=== PATIENT | female | born 1940 | race Caucasian/White ===

== ENCOUNTER 2017-06-21 19:15 | Inpatient (IN) | payer MEDICARE, OTHER ==
[2017-06-21] MEDS: NS 1,000 ML IV ×2 (20:30→23:30)
[2017-06-21 20:43] LABS: BASO % 0.2 % (0.0-1.0); EOS % 0.1 % (0.0-3.0); HEMATOCRIT 42.7 % (36.0-47.0); IMMATURE GRANULOCYTE % 0.4 % (0-3.0); LYMPH # 1.4 10^3/uL (1.5-4.5); LYMPH % 8.5 % (24.0-44.0); MEAN CORPUSCULAR HEMOGLOBIN 28.7 pg (27.0-33.0); MEAN CORPUSCULAR HGB CONC 32.8 g/dl (32.0-36.5); MEAN CORPUSCULAR VOLUME 87.7 fl (80.0-96.0); MONO # 0.8 10^3/uL (0.0-0.8); MONO % 4.7 % (0.0-5.0); NEUTROPHILS # 13.8 10^3/uL (1.8-7.7); NEUTROPHILS % 86.1 % (36.0-66.0); PLATELET COUNT, AUTOMATED 307 10^3/uL (150-450); RED BLOOD COUNT 4.87 10^6/uL (4.00-5.40); RED CELL DISTRIBUTION WIDTH 12.8 % (11.5-14.5)
[2017-06-21 20:52] LABS: ACETAMINOPHEN LEVEL < 2.0 UG/ML (10.0-30.0); ALBUMIN 3.5 GM/DL (3.2-5.2); ALBUMIN/GLOBULIN RATIO 0.95 (1.00-1.93); ALKALINE PHOSPHATASE 117 U/L (45-117); ALT/SGPT 47 U/L (12-78); ANION GAP 17 MEQ/L (8-16); AST/SGOT 39 U/L (7-37); BILIRUBIN,DIRECT 0.3 MG/DL (0.0-0.2); BLOOD UREA NITROGEN 34 MG/DL (7-18); CARBON DIOXIDE LEVEL 21 MEQ/L (21-32); CHLORIDE LEVEL 104 MEQ/L (98-107); CPK CREATINE PHOSPHOKINASE 612 U/L (26-192); CREATININE FOR GFR 0.74 MG/DL (0.55-1.30); ETHYL ALCOHOL (ETHANOL) < 0.003 % (0.000-0.010); GLOMERULAR FILTRATION RATE > 60.0 (>39); GLUCOSE, FASTING 202 MG/DL (70-100); POTASSIUM SERUM 3.3 MEQ/L (3.5-5.1); SALICYLATE LEVEL 2.2 MG/DL (5.0-30.0); SODIUM LEVEL 142 MEQ/L (136-145); TOTAL PROTEIN 7.2 GM/DL (6.4-8.2); TROPONIN I < 0.02 NG/ML (< 0.10)
[2017-06-21 20:57] LABS: LACTIC ACID SEPSIS PROTOCOL 3.2 MMOL/L (0.4-2.0)
[2017-06-21 21:01] LABS: AMMONIA 22 uMOL/L (<32)
[2017-06-21 21:10] LABS: BILIRUBIN,TOTAL 0.9 MG/DL (0.2-1.0); CK-MB VALUE MASS 14.4 NG/ML (0.0-3.6); MB/CK RELATIVE INDEX 2.35 (< OR =4); THYROID STIMULATING HORMONE 0.509 uIU/ML (0.358-3.740)
[2017-06-21 21:13] LABS: OSMOLALITY SERUM 309 MOSM/KG (280-301)
[2017-06-21 21:20] LABS: VENOUS BASE EXCESS -3.4 (-2.0-2.0); VENOUS HCO3 19.3 MEQ/L (23.0-27.0); VENOUS O2 SATURATION 99.5 % (60.0-80.0); VENOUS PARTIAL PRESSURE CO2 28.8 mmHg (38.0-50.0); VENOUS PARTIAL PRESSURE O2 212.5 mmHg (30.0-50.0); VENOUS PH 7.445 UNITS (7.330-7.430); VENOUS STANDARD HCO3 21.7 MEQ/L; VENOUS TOTAL CO2 20.2 MEQ/L (24.0-28.0)
[2017-06-21 21:58] LABS: KETONE, URINE AUTO RFX 2+ mg/dL (NEGATIVE); LEUKOCYTE ESTERASE UR AUTO RFX NEGATIVE (NEGATIVE); MUCUS, URINE RFX SMALL (NEGATIVE); NITRITE, URINE AUTO RFX NEGATIVE (NEGATIVE); RBC, URINE AUTO RFX 1 /HPF (0-3); SPECIFIC GRAVITY UR AUTO RFX 1.026 (1.002-1.035); SQUAM EPITHELIAL CELL UR AURFX 4 /HPF (0-6); WBC, URINE AUTO RFX 2 /HPF (0-3)
[2017-06-21 22:07] LABS: AMPHETAMINES LEVEL URINE NEGATIVE (NEGATIVE); BARBITURATES URINE NEGATIVE (NEGATIVE); BENZODIAZEPINES URINE NEGATIVE (NEGATIVE); CANNABINOIDS URINE NEGATIVE (NEGATIVE); COCAINE METABOLITE URINE NEGATIVE (NEGATIVE); METHADONE URINE NEGATIVE (NEGATIVE); OPIATES URINE NEGATIVE (NEGATIVE); PHENCYCLIDINE URINE NEGATIVE (NEGATIVE)
[2017-06-21 22:42] LABS: ESTIMATED AVERAGE GLUCOSE 214 MG/DL (60-110); HEMOGLOBIN A1c 9.1 %
[2017-06-22] MEDS: NS 1,000 ML IV ×4 (00:30→22:51)
[2017-06-22] MEDS ORDERED: BISACODYL 5 MG TAB PO (03:45)
[2017-06-22] MEDS ORDERED: ONDANSETRON 4 MG TAB (S0181) PO (03:45)
[2017-06-22] MEDS: POTASSIUM CHLORIDE 10 MEQ SR TABLET PO (06:12)
[2017-06-22] MEDS: MAGNESIUM OXIDE 400 MG TAB (MAG-OX) PO (06:13)
[2017-06-22 06:52] LABS: ESTIMATED AVERAGE GLUCOSE 237 MG/DL (60-110); HEMOGLOBIN A1c 9.9 %
[2017-06-22 06:56] LABS: THYROID STIMULATING HORMONE 0.437 uIU/ML (0.358-3.740)
[2017-06-22 09:25] LABS: MEAN CORPUSCULAR HEMOGLOBIN 29.1 pg (27.0-33.0); MEAN CORPUSCULAR HGB CONC 34.1 g/dl (32.0-36.5); MEAN CORPUSCULAR VOLUME 85.2 fl (80.0-96.0); PLATELET COUNT, AUTOMATED 232 10^3/uL (150-450); RED BLOOD COUNT 3.99 10^6/uL (4.00-5.40); RED CELL DISTRIBUTION WIDTH 12.9 % (11.5-14.5); WHITE BLOOD COUNT 10.3 10^3/uL (4.0-10.0)
[2017-06-22 09:29] LABS: HEMOGLOBIN 11.6 g/dl (12.0-16.0)
[2017-06-22] MEDS: ATENOLOL 25 MG TAB PO (09:36)
[2017-06-22] MEDS: ENOXAPARIN 40 MG/0.4 ML SYRINGE (J1650) SC (09:36)
[2017-06-22 09:41] LABS: ANION GAP 13 MEQ/L (8-16); BLOOD UREA NITROGEN 34 MG/DL (7-18); CALCIUM LEVEL 7.9 MG/DL (8.8-10.2); CARBON DIOXIDE LEVEL 22 MEQ/L (21-32); CHLORIDE LEVEL 111 MEQ/L (98-107); CPK CREATINE PHOSPHOKINASE 511 U/L (26-192); CREATININE FOR GFR 0.54 MG/DL (0.55-1.30); GLOMERULAR FILTRATION RATE > 60.0 (>39); GLUCOSE, FASTING 199 MG/DL (70-100); POTASSIUM SERUM 3.2 MEQ/L (3.5-5.1); SODIUM LEVEL 146 MEQ/L (136-145)
[2017-06-22] MEDS: OLANZapine 5 MG TAB PO (17:15)
[2017-06-22 17:41] LABS: AMYLASE 185 U/L (25-115); LIPASE 201 U/L (73-393)
[2017-06-22] MEDS: ACETAMINOPHEN TAB 650MG DOSE (2X325MG) PO (22:39)
[2017-06-23] MEDS: NYSTATIN 100,000 UNITS/GM TOPICAL PWD 15 GM TOP ×3 (02:50→21:34)
[2017-06-23 04:50] LABS: APPEARANCE, URINE CLEAR (CLEAR); BACTERIA, URINE AUTO 1+ (NEGATIVE); BILIRUBIN, URINE AUTO NEGATIVE (NEGATIVE); BLOOD, URINE BLOOD NEGATIVE (NEGATIVE); COLOR, URINE YELLOW (YELLOW); GLUCOSE, URINE (UA) AUTO 1+ mg/dL (NEGATIVE); KETONE, URINE AUTO NEGATIVE (NEGATIVE); LEUKOCYTE ESTERASE, URINE AUTO TRACE (NEGATIVE); MUCUS, URINE SMALL (NEGATIVE); NITRITE, URINE AUTO NEGATIVE (NEGATIVE); PROTEIN, URINE AUTO NEGATIVE (NEGATIVE); RBC, URINE AUTO 4 /HPF (0-3); SPECIFIC GRAVITY URINE AUTO 1.025 (1.002-1.035); SQUAMOUS EPITHELIAL CELL UR AU 2 /HPF (0-6); WBC, URINE AUTO 2 /HPF (0-3)
[2017-06-23 05:42] LABS: HEMATOCRIT 35.3 % (36.0-47.0); HEMOGLOBIN 11.6 g/dl (12.0-16.0); MEAN CORPUSCULAR HEMOGLOBIN 28.6 pg (27.0-33.0); MEAN CORPUSCULAR HGB CONC 32.9 g/dl (32.0-36.5); MEAN CORPUSCULAR VOLUME 86.9 fl (80.0-96.0); PLATELET COUNT, AUTOMATED 209 10^3/uL (150-450); RED BLOOD COUNT 4.06 10^6/uL (4.00-5.40); WHITE BLOOD COUNT 9.1 10^3/uL (4.0-10.0)
[2017-06-23 06:12] LABS: BLOOD UREA NITROGEN 24 MG/DL (7-18); CREATININE FOR GFR 0.48 MG/DL (0.55-1.30); GLOMERULAR FILTRATION RATE > 60.0 (>39); GLUCOSE, FASTING 169 MG/DL (70-100); SODIUM LEVEL 145 MEQ/L (136-145)
[2017-06-23 06:13] LABS: ANION GAP 9 MEQ/L (8-16); CALCIUM LEVEL 8.4 MG/DL (8.8-10.2); CARBON DIOXIDE LEVEL 25 MEQ/L (21-32); CHLORIDE LEVEL 111 MEQ/L (98-107); POTASSIUM SERUM 3.1 MEQ/L (3.5-5.1)
[2017-06-23] MEDS: ATENOLOL 25 MG TAB PO (08:26)
[2017-06-23] MEDS: NS 1,000 ML IV (08:27)
[2017-06-23] MEDS: ENOXAPARIN 40 MG/0.4 ML SYRINGE (J1650) SC (08:27)
[2017-06-23] MEDS: OLANZapine 2.5MG TABLET PO (10:35)
[2017-06-23] MEDS: POTASSIUM CHLORIDE 10 MEQ SR TABLET PO (10:36)
[2017-06-23 10:47] LABS: CPK CREATINE PHOSPHOKINASE 350 U/L (26-192)
[2017-06-23] MEDS ORDERED: OLANZapine 2.5MG TABLET PO (21:00)
[2017-06-23] MEDS: ARIPiprazole 2 MG TAB PO (21:34)
[2017-06-24 05:41] LABS: HEMATOCRIT 34.6 % (36.0-47.0); HEMOGLOBIN 11.6 g/dl (12.0-16.0); MEAN CORPUSCULAR HEMOGLOBIN 28.7 pg (27.0-33.0); MEAN CORPUSCULAR HGB CONC 33.5 g/dl (32.0-36.5); MEAN CORPUSCULAR VOLUME 85.6 fl (80.0-96.0); PLATELET COUNT, AUTOMATED 219 10^3/uL (150-450); RED BLOOD COUNT 4.04 10^6/uL (4.00-5.40); RED CELL DISTRIBUTION WIDTH 12.9 % (11.5-14.5); WHITE BLOOD COUNT 9.9 10^3/uL (4.0-10.0)
[2017-06-24 06:01] LABS: ANION GAP 8 MEQ/L (8-16); BLOOD UREA NITROGEN 12 MG/DL (7-18); CALCIUM LEVEL 8.5 MG/DL (8.8-10.2); CARBON DIOXIDE LEVEL 25 MEQ/L (21-32); CHLORIDE LEVEL 112 MEQ/L (98-107); CREATININE FOR GFR 0.39 MG/DL (0.55-1.30); GLOMERULAR FILTRATION RATE > 60.0 (>39); GLUCOSE, FASTING 203 MG/DL (70-100); POTASSIUM SERUM 3.3 MEQ/L (3.5-5.1); SODIUM LEVEL 145 MEQ/L (136-145)
[2017-06-24] MEDS: ATENOLOL 25 MG TAB PO (08:37)
[2017-06-24] MEDS: LISINOPRIL 10 MG TAB PO (08:37)
[2017-06-24] MEDS: ARIPiprazole 2 MG TAB PO (08:37)
[2017-06-24] MEDS: ENOXAPARIN 40 MG/0.4 ML SYRINGE (J1650) SC (08:38)
[2017-06-24] MEDS: NYSTATIN 100,000 UNITS/GM TOPICAL PWD 15 GM TOP ×2 (08:38→20:36)
[2017-06-24] MEDS: POTASSIUM CHLORIDE 10 MEQ SR TABLET PO (08:38)
[2017-06-24] MEDS ORDERED: PILL CUTTER/CRUSHER XX (15:30)
[2017-06-25 06:05] LABS: HEMATOCRIT 35.2 % (36.0-47.0); HEMOGLOBIN 11.7 g/dl (12.0-16.0); MEAN CORPUSCULAR HEMOGLOBIN 28.2 pg (27.0-33.0); MEAN CORPUSCULAR HGB CONC 33.2 g/dl (32.0-36.5); MEAN CORPUSCULAR VOLUME 84.8 fl (80.0-96.0); PLATELET COUNT, AUTOMATED 235 10^3/uL (150-450); RED BLOOD COUNT 4.15 10^6/uL (4.00-5.40); WHITE BLOOD COUNT 8.6 10^3/uL (4.0-10.0)
[2017-06-25 06:17] LABS: ANION GAP 8 MEQ/L (8-16); BLOOD UREA NITROGEN 9 MG/DL (7-18); CALCIUM LEVEL 8.7 MG/DL (8.8-10.2); CARBON DIOXIDE LEVEL 26 MEQ/L (21-32); CHLORIDE LEVEL 109 MEQ/L (98-107); CREATININE FOR GFR 0.44 MG/DL (0.55-1.30); GLOMERULAR FILTRATION RATE > 60.0 (>39); GLUCOSE, FASTING 219 MG/DL (70-100); POTASSIUM SERUM 3.7 MEQ/L (3.5-5.1); SODIUM LEVEL 143 MEQ/L (136-145)
[2017-06-25] MEDS: ENOXAPARIN 40 MG/0.4 ML SYRINGE (J1650) SC (08:55)
[2017-06-25] MEDS: LISINOPRIL 10 MG TAB PO (08:56)
[2017-06-25] MEDS: ATENOLOL 25 MG TAB PO (08:56)
[2017-06-25] MEDS: NYSTATIN 100,000 UNITS/GM TOPICAL PWD 15 GM TOP ×2 (08:57→20:45)
[2017-06-25] MEDS: **hydrALAZINE** 10 MG TAB PO (22:28)
[2017-06-26] MEDS: ATENOLOL 25 MG TAB PO (09:34)
[2017-06-26] MEDS: LISINOPRIL 10 MG TAB PO (09:34)
[2017-06-26] MEDS: ENOXAPARIN 40 MG/0.4 ML SYRINGE (J1650) SC (09:34)
[2017-06-26] MEDS: NYSTATIN 100,000 UNITS/GM TOPICAL PWD 15 GM TOP ×2 (09:34→22:20)
[2017-06-26] MEDS: ACETAMINOPHEN TAB 650MG DOSE (2X325MG) PO (09:35)
[2017-06-26] MEDS: METOPROLOL TART 12.5 MG PER 1/2 TAB PO (22:19)
[2017-06-27] MEDS: METOPROLOL TART 12.5 MG PER 1/2 TAB PO ×2 (09:14→22:16)
[2017-06-27] MEDS: LISINOPRIL 10 MG TAB PO (09:15)
[2017-06-27] MEDS: ENOXAPARIN 40 MG/0.4 ML SYRINGE (J1650) SC (09:15)
[2017-06-27] MEDS: NYSTATIN 100,000 UNITS/GM TOPICAL PWD 15 GM TOP ×2 (09:15→22:08)
[2017-06-27] MEDS ORDERED: PILL CUTTER/CRUSHER XX (10:45)
[2017-06-28 06:30] LABS: HEMATOCRIT 35.7 % (36.0-47.0); HEMOGLOBIN 11.9 g/dl (12.0-16.0); MEAN CORPUSCULAR HEMOGLOBIN 28.5 pg (27.0-33.0); MEAN CORPUSCULAR HGB CONC 33.3 g/dl (32.0-36.5); MEAN CORPUSCULAR VOLUME 85.4 fl (80.0-96.0); PLATELET COUNT, AUTOMATED 220 10^3/uL (150-450); RED BLOOD COUNT 4.18 10^6/uL (4.00-5.40); RED CELL DISTRIBUTION WIDTH 12.8 % (11.5-14.5); WHITE BLOOD COUNT 9.3 10^3/uL (4.0-10.0)
[2017-06-28 06:54] LABS: ANION GAP 6 MEQ/L (8-16); BLOOD UREA NITROGEN 12 MG/DL (7-18); CALCIUM LEVEL 8.7 MG/DL (8.8-10.2); CARBON DIOXIDE LEVEL 29 MEQ/L (21-32); CHLORIDE LEVEL 105 MEQ/L (98-107); CREATININE FOR GFR 0.44 MG/DL (0.55-1.30); GLOMERULAR FILTRATION RATE > 60.0 (>39); GLUCOSE, FASTING 231 MG/DL (70-100); MAGNESIUM LEVEL 1.8 MG/DL (1.8-2.4); POTASSIUM SERUM 3.7 MEQ/L (3.5-5.1); SODIUM LEVEL 140 MEQ/L (136-145)
[2017-06-28] MEDS: LISINOPRIL 10 MG TAB PO (09:21)
[2017-06-28] MEDS: METOPROLOL TART 25 MG TABLET PO ×2 (09:22→20:22)
[2017-06-28] MEDS: ENOXAPARIN 40 MG/0.4 ML SYRINGE (J1650) SC (09:22)
[2017-06-28] MEDS: NYSTATIN 100,000 UNITS/GM TOPICAL PWD 15 GM TOP ×2 (09:22→20:21)
[2017-06-29] MEDS: METOPROLOL TART 25 MG TABLET PO ×2 (08:47→20:23)
[2017-06-29] MEDS: ENOXAPARIN 40 MG/0.4 ML SYRINGE (J1650) SC (08:47)
[2017-06-29] MEDS: LISINOPRIL 10 MG TAB PO (08:47)
[2017-06-29] MEDS: NYSTATIN 100,000 UNITS/GM TOPICAL PWD 15 GM TOP ×2 (08:47→20:23)
[2017-06-30] MEDS: LISINOPRIL 10 MG TAB PO (10:00)
[2017-06-30] MEDS: METOPROLOL TART 25 MG TABLET PO ×2 (10:00→20:40)
[2017-06-30] MEDS: ENOXAPARIN 40 MG/0.4 ML SYRINGE (J1650) SC (10:01)
[2017-06-30] MEDS: NYSTATIN 100,000 UNITS/GM TOPICAL PWD 15 GM TOP ×2 (10:02→20:41)
[2017-07-01] MEDS: NYSTATIN 100,000 UNITS/GM TOPICAL PWD 15 GM TOP ×2 (10:49→19:41)
[2017-07-01] MEDS: LISINOPRIL 10 MG TAB PO (10:49)
[2017-07-01] MEDS: ENOXAPARIN 40 MG/0.4 ML SYRINGE (J1650) SC (10:49)
[2017-07-01] MEDS: METOPROLOL TART 50 MG TAB PO ×2 (10:49→19:41)
[2017-07-01] MEDS: ACETAMINOPHEN TAB 650MG DOSE (2X325MG) PO (19:41)
[2017-07-02 05:54] LABS: HEMATOCRIT 35.9 % (36.0-47.0); HEMOGLOBIN 11.9 g/dl (12.0-16.0); MEAN CORPUSCULAR HEMOGLOBIN 27.8 pg (27.0-33.0); MEAN CORPUSCULAR HGB CONC 33.1 g/dl (32.0-36.5); MEAN CORPUSCULAR VOLUME 83.9 fl (80.0-96.0); PLATELET COUNT, AUTOMATED 263 10^3/uL (150-450); RED BLOOD COUNT 4.28 10^6/uL (4.00-5.40); RED CELL DISTRIBUTION WIDTH 12.6 % (11.5-14.5); WHITE BLOOD COUNT 9.9 10^3/uL (4.0-10.0)
[2017-07-02 06:09] LABS: ANION GAP 8 MEQ/L (8-16); BLOOD UREA NITROGEN 14 MG/DL (7-18); CALCIUM LEVEL 8.7 MG/DL (8.8-10.2); CARBON DIOXIDE LEVEL 26 MEQ/L (21-32); CHLORIDE LEVEL 104 MEQ/L (98-107); CREATININE FOR GFR 0.48 MG/DL (0.55-1.30); GLOMERULAR FILTRATION RATE > 60.0 (>39); GLUCOSE, FASTING 244 MG/DL (70-100); MAGNESIUM LEVEL 1.9 MG/DL (1.8-2.4); POTASSIUM SERUM 3.7 MEQ/L (3.5-5.1); SODIUM LEVEL 138 MEQ/L (136-145)
[2017-07-02] MEDS: LISINOPRIL 10 MG TAB PO (09:18)
[2017-07-02] MEDS: METOPROLOL TART 50 MG TAB PO (09:18)
[2017-07-02] MEDS: ENOXAPARIN 40 MG/0.4 ML SYRINGE (J1650) SC (09:19)
[2017-07-02] MEDS: NYSTATIN 100,000 UNITS/GM TOPICAL PWD 15 GM TOP ×2 (09:19→20:32)
[2017-07-02 17:12] LABS: BEDSIDE GLUCOSE 320 MG/DL (83-110)
[2017-07-02] MEDS: metFORMIN (GLUCOPHAGE) 500 MG TAB PO (18:04)
[2017-07-02] MEDS: METOPROLOL TARTRATE 100 MG TAB PO (20:31)
[2017-07-02] MEDS ORDERED: GLUCAGON FOR INJ 1 MG VIAL (J1610) SC (23:00)
[2017-07-02] MEDS ORDERED: GLUCOSE 4 GM CHEW TABLET PO (23:00)
[2017-07-02] MEDS ORDERED: DEXTROSE 50% 50 ML SYRINGE IV (23:00)
[2017-07-03 08:00] LABS: BEDSIDE GLUCOSE 291 MG/DL (83-110)
[2017-07-03] MEDS: ENOXAPARIN 40 MG/0.4 ML SYRINGE (J1650) SC (08:07)
[2017-07-03] MEDS: LISINOPRIL 10 MG TAB PO (08:07)
[2017-07-03] MEDS: METOPROLOL TARTRATE 100 MG TAB PO ×2 (08:08→21:38)
[2017-07-03] MEDS: metFORMIN (GLUCOPHAGE) 500 MG TAB PO ×2 (08:08→17:09)
[2017-07-03] MEDS: NYSTATIN 100,000 UNITS/GM TOPICAL PWD 15 GM TOP ×2 (08:09→21:38)
[2017-07-03 12:09] LABS: BEDSIDE GLUCOSE 274 MG/DL (83-110)
[2017-07-03 12:45] LABS: BEDSIDE GLUCOSE 391 MG/DL (83-110)
[2017-07-03 12:45] LABS: BEDSIDE GLUCOSE 266 MG/DL (83-110)
[2017-07-04] MEDS: ENOXAPARIN 40 MG/0.4 ML SYRINGE (J1650) SC (08:02)
[2017-07-04] MEDS: NYSTATIN 100,000 UNITS/GM TOPICAL PWD 15 GM TOP (08:02)
[2017-07-04] MEDS: metFORMIN (GLUCOPHAGE) 500 MG TAB PO (08:03)
[2017-07-04] MEDS: METOPROLOL TARTRATE 100 MG TAB PO (08:03)
[2017-07-04] MEDS: LISINOPRIL 10 MG TAB PO (08:20)
[2017-07-05 12:08] LABS: BEDSIDE GLUCOSE 286 MG/DL (83-110)
[2017-07-05 12:08] LABS: BEDSIDE GLUCOSE 222 MG/DL (83-110)
[2017-07-05 12:08] LABS: BEDSIDE GLUCOSE 299 MG/DL (83-110)
== END 2017-07-04 10:36 | DRG 558 ==
LOC: M ED INP 19:16 → M MSPAV 06-22 17:37 → M ED 19:15
DX: M62.82 Rhabdomyolysis (principal); E87.2 Acidosis; N17.9 Acute kidney failure, unspecified; R41.82 Altered mental status, unspecified; E11.9 Type 2 diabetes mellitus without complications; K21.9 Gastro-esophageal reflux disease without esophagitis; J30.9 Allergic rhinitis, unspecified; F03.90 Unspecified dementia, unspecified severity, without behavioral disturbance, psychotic disturbance, mood disturbance, and anxiety; M79.7 Fibromyalgia; M81.0 Age-related osteoporosis without current pathological fracture; E78.00 Pure hypercholesterolemia, unspecified; F29 Unspecified psychosis not due to a substance or known physiological condition; I10 Essential (primary) hypertension; E87.6 Hypokalemia; M48.08 Spinal stenosis, sacral and sacrococcygeal region; G62.9 Polyneuropathy, unspecified; Z87.891 Personal history of nicotine dependence; Z88.2 Allergy status to sulfonamides; Z79.82 Long term (current) use of aspirin; Z79.899 Other long term (current) drug therapy

== ENCOUNTER → 2017-07-04 | Outpatient (REF) | payer MEDICARE, OTHER ==
[2017-07-05 09:27] LABS: HEMOGLOBIN 12.9 g/dl (12.0-16.0); MEAN CORPUSCULAR HEMOGLOBIN 28.5 pg (27.0-33.0); MEAN CORPUSCULAR HGB CONC 33.1 g/dl (32.0-36.5); MEAN CORPUSCULAR VOLUME 86.3 fl (80.0-96.0); PLATELET COUNT, AUTOMATED 327 10^3/uL (150-450); RED BLOOD COUNT 4.52 10^6/uL (4.00-5.40); RED CELL DISTRIBUTION WIDTH 12.7 % (11.5-14.5); WHITE BLOOD COUNT 9.1 10^3/uL (4.0-10.0)
[2017-07-05 09:44] LABS: ESTIMATED AVERAGE GLUCOSE 246 MG/DL (60-110); HEMOGLOBIN A1c 10.2 %
[2017-07-05 10:08] LABS: ALBUMIN 3.2 GM/DL (3.2-5.2); ALBUMIN/GLOBULIN RATIO 0.91 (1.00-1.93); ALKALINE PHOSPHATASE 113 U/L (45-117); ALT/SGPT 22 U/L (12-78); ANION GAP 12 MEQ/L (8-16); AST/SGOT 11 U/L (7-37); BILIRUBIN,TOTAL 0.4 MG/DL (0.2-1.0); BLOOD UREA NITROGEN 14 MG/DL (7-18); CALCIUM LEVEL 8.9 MG/DL (8.8-10.2); CARBON DIOXIDE LEVEL 24 MEQ/L (21-32); CHLORIDE LEVEL 102 MEQ/L (98-107); CREATININE FOR GFR 0.67 MG/DL (0.55-1.30); GLOMERULAR FILTRATION RATE > 60.0 (>39); GLUCOSE, FASTING 272 MG/DL (70-100); POTASSIUM SERUM 4.2 MEQ/L (3.5-5.1); SODIUM LEVEL 138 MEQ/L (136-145); THYROID STIMULATING HORMONE 0.731 uIU/ML (0.358-3.740); TOTAL PROTEIN 6.7 GM/DL (6.4-8.2)
[2017-07-05 13:23] LABS: CREATININE, URINE 58.7 MG/DL; MALB URINE SIEMENS 8.2 MG/L; MAU/CREAT RATIO 13.9 MCG/MG (0.0-30.0)
== END ==
LOC: SKLAB6 07:00
DX: E87.6 Hypokalemia (principal); E11.9 Type 2 diabetes mellitus without complications; I10 Essential (primary) hypertension

== ENCOUNTER → 2017-07-05 | Outpatient (REF) | payer MEDICARE, SELFPAY, OTHER | LOC: SKLAB6 12:22 | DX: I10 Essential (primary) hypertension (principal); E11.9 Type 2 diabetes mellitus without complications | CPT/HCPCS: 84443 ==

== ENCOUNTER → 2017-07-25 | Outpatient (REF) | payer MEDICARE, OTHER | LOC: SKLAB6 11:30 | DX: M54.5 Low back pain (principal); M85.88 Other specified disorders of bone density and structure, other site; M50.30 Other cervical disc degeneration, unspecified cervical region | CPT/HCPCS: 72052 ==

== ENCOUNTER → 2017-08-21 | Outpatient (REF) | payer MEDICARE, OTHER | LOC: SKLAB6 00:15 | DX: R39.89 Other symptoms and signs involving the genitourinary system (principal); Z79.899 Other long term (current) drug therapy | CPT/HCPCS: 87088; 87186 ==

== ENCOUNTER 2017-11-30 06:05 | Emergency (ER) | payer MEDICARE, OTHER ==
[2017-11-30] MEDS ORDERED: ASPIRIN 81 MG CHEW TABLET PO (06:30)
[2017-11-30] MEDS ORDERED: NITROGLYCERIN 0.4 MG SUBL TABLET SL (06:30)
[2017-11-30 06:46] LABS: BASO # 0.1 10^3/uL (0.0-0.2); BASO % 0.6 % (0.0-1.0); EOS # 0.3 10^3/uL (0.0-0.50); EOS % 3.4 % (0.0-3.0); HEMOGLOBIN 13.4 g/dl (12.0-15.5); IMMATURE GRANULOCYTE % 0.5 % (0-3.0); LYMPH # 2.6 10^3/uL (1.5-4.5); LYMPH % 31.1 % (24.0-44.0); MEAN CORPUSCULAR HEMOGLOBIN 28.9 pg (27.0-33.0); MEAN CORPUSCULAR HGB CONC 33.5 g/dl (32.0-36.5); MEAN CORPUSCULAR VOLUME 86.4 fl (80.0-96.0); MONO # 0.5 10^3/uL (0.0-0.8); MONO % 6.4 % (0.0-5.0); NEUTROPHILS # 4.8 10^3/uL (1.8-7.7); PLATELET COUNT, AUTOMATED 244 10^3/uL (150-450); RED BLOOD COUNT 4.63 10^6/uL (4.00-5.40); RED CELL DISTRIBUTION WIDTH 13.2 % (11.5-14.5); WHITE BLOOD COUNT 8.3 10^3/uL (4.0-10.0)
[2017-11-30 06:50] LABS: INR 0.95; PROTHROMBIN TIME 12.8 SECONDS (12.1-14.4)
[2017-11-30 06:51] LABS: PARTIAL THROMBOPLASTIN TIME 27.1 SECONDS (25.4-37.6)
[2017-11-30 06:54] LABS: ALBUMIN 3.5 GM/DL (3.2-5.2); ALBUMIN/GLOBULIN RATIO 1.17 (1.00-1.93); ALKALINE PHOSPHATASE 67 U/L (45-117); ALT/SGPT 16 U/L (12-78); ANION GAP 8 MEQ/L (8-16); AST/SGOT 13 U/L (7-37); BILIRUBIN,DIRECT 0.2 MG/DL (0.0-0.2); BILIRUBIN,TOTAL 0.6 MG/DL (0.2-1.0); BLOOD UREA NITROGEN 7 MG/DL (7-18); CALCIUM LEVEL 8.7 MG/DL (8.8-10.2); CARBON DIOXIDE LEVEL 30 MEQ/L (21-32); CHLORIDE LEVEL 103 MEQ/L (98-107); CREATININE FOR GFR 0.54 MG/DL (0.55-1.30); GLOMERULAR FILTRATION RATE > 60.0 (>39); GLUCOSE, FASTING 154 MG/DL (70-100); LIPASE 156 U/L (73-393); POTASSIUM SERUM 3.9 MEQ/L (3.5-5.1); SODIUM LEVEL 141 MEQ/L (136-145); TOTAL PROTEIN 6.5 GM/DL (6.4-8.2); TROPONIN I < 0.02 NG/ML (< 0.10)
[2017-11-30 07:00] LABS: CK-MB VALUE MASS 1.7 NG/ML (<3.6); CPK CREATINE PHOSPHOKINASE 54 U/L (26-192); FREE T4 1.09 NG/DL (0.76-1.46); MB/CK RELATIVE INDEX 3.14 (< OR =4); THYROID STIMULATING HORMONE 0.806 uIU/ML (0.358-3.740)
[2017-11-30] MEDS ORDERED: ISOVUE-370 76% 100ML VIAL (Q9967) As Ordered (07:09)
[2017-11-30 12:23] LABS: CK-MB VALUE MASS 1.3 NG/ML (<3.6); CPK CREATINE PHOSPHOKINASE 46 U/L (26-192); MB/CK RELATIVE INDEX 2.82 (< OR =4); TROPONIN I < 0.02 NG/ML (< 0.10)
== END 2017-11-30 13:15 | disposition home or self-care (01) ==
LOC: M ED 06:05
DX: R07.9 Chest pain, unspecified (principal); E11.9 Type 2 diabetes mellitus without complications; I10 Essential (primary) hypertension; E78.5 Hyperlipidemia, unspecified; Z87.891 Personal history of nicotine dependence
CPT/HCPCS: Q9967

== ENCOUNTER → 2017-12-05 | Outpatient (REF) | payer MEDICARE, OTHER ==
[2017-12-05 16:29] LABS: ESTIMATED AVERAGE GLUCOSE 148 MG/DL (60-110); HEMOGLOBIN A1c 6.8 %
== END ==
LOC: M SFHCPLAZ 14:27
DX: E11.9 Type 2 diabetes mellitus without complications (principal)
CPT/HCPCS: 83036